=== PATIENT | male | born 1955 | race Caucasian/White ===

== ENCOUNTER 2025-01-16 11:36 | Emergency (ER) | payer BC, MEDICARE ==
[2025-01-16] MEDS: MECLIZINE 12.5 MG TAB PO STA (12:20)
[2025-01-16] MEDS: SODIUM CHLORIDE 0.9% 1,000 ML IV STA (12:22)
[2025-01-16 12:25] LABS: ALT 26 U/L (4-49); African American GFR (CKD) >90 (>60 ml/min/1.73 sqM); Albumin 4.3 g/dL (3.5-5.0); Anion Gap 8 mmol/L; Basophils # (A) 0.04 10*3/uL (0.00-0.10); Basophils % (A) 0.6 %; Blood Urea Nitrogen 23 mg/dL (9-20); Calcium 9.9 mg/dL (8.4-10.2); Carbon Dioxide 26 mmol/L (22-30); Chloride 100 mmol/L (98-107); Eosinophils # (A) 0.11 10*3/uL (0.04-0.35); Eosinophils % (A) 1.6 %; Glucose 105 mg/dL (74-99); HCT 43.5 % (39.6-50.0); HGB 15.5 g/dL (13.0-17.0); Lymphocytes # (A) 1.35 10*3/uL (0.90-5.00); Lymphocytes % (A) 20.1 %; MCHC 35.6 g/dL (32.0-37.0); MCV 95.4 fL (80.0-97.0); Mean Platelet Volume 10.5 fL (9.5-12.2); Monocytes % (A) 7.5 %; Neutrophils # (A) 4.69 10*3/uL (1.80-7.70); Neutrophils % (A) 70.1 %; Non-African American GFR(CKD) 88 (>60 ml/min/1.73 sqM); Platelet Count 223 10*3/uL (140-440); RBC 4.56 10*6/uL (4.40-5.60); RDW 11.8 % (11.5-14.5); Sodium 134 mmol/L (137-145); Total Bilirubin 1.3 mg/dL (0.2-1.3)
[2025-01-16 12:26] LABS: Potassium 4.4 mmol/L (3.5-5.1)
[2025-01-16 12:27] LABS: AST 38 U/L (17-59); Alkaline Phosphatase 57 U/L (38-126)
[2025-01-16 12:36] LABS: INR 0.9 (<1.2); Prothrombin Time 10.3 sec (10.0-12.5)
[2025-01-16 12:41] LABS: Appearance,Urine Clear (Clear); Bilirubin,Urine Negative (Negative); Blood,Urine Negative (Negative); Color,Urine Light Yellow; Glucose,Urine (UA) Negative (Negative); Ketones,Urine 1+ (Negative); Leukocyte Esterase,Urine Negative (Negative); Nitrite,Urine Negative (Negative); Protein,Urine Negative (Negative); Specific Gravity,Urine 1.016 (1.001-1.035); Urobilinogen,Urine <2.0 mg/dL (<2.0)
[2025-01-16 12:56] LABS: Amphetamine Screen,Urine Detected (NotDetected); Barbiturate Screen,Urine Not Detected (NotDetected); Benzodiazepines Screen,Urine Not Detected (NotDetected); Cocaine Screen,Urine Not Detected (NotDetected); Methadone Screen, Urine Not Detected (NotDetected); Opiate Screen,Urine Not Detected (NotDetected); Oxycodone Screen, Urine Not Detected (NotDetected); Phencyclidine Screen,Urine Not Detected (NotDetected); Tricyclic Antidepressant,Urine Not Detected (NotDetected); Urn Cannabinoid Scrn Not Detected (NotDetected)
--- NOTE | 2025-01-16 13:01 | XR ---
EXAMINATION TYPE: XR chest 2V DATE OF EXAM: 01/16/2025 12:42 PM COMPARISON: None CLINICAL INDICATION: Male, 69 years old with history of dizzy, , TECHNIQUE: PA and lateral views FINDINGS: Heart normal size. Aorta and pulmonary vasculature within normal limits. Moderate hyperinflation. Old healed right-sided rib fracture deformities. No consolidation or pleural effusion. IMPRESSION: Mild hyperinflation may relate to depth of inspiration or underlying emphysema. Old healed right-side d rib fracture deformities. No acute process seen. [facility], Workstation: [facility], 01/16/2025 12:58 PM
[2025-01-16 13:13] LABS: Influenza A Not Detected (Not Detectd); Influenza B Not Detected (Not Detectd); RSV Not Detected (Not Detectd)
--- NOTE | 2025-01-16 13:20 | CT ---
EXAMINATION TYPE: CT brain wo con DATE OF EXAM: 01/16/2025 COMPARISON: None CLINICAL INDICATION: Male, 69 years old with history of vertigo; PHH, vertigo CT DLP: 1159 mGycm Automated exposure control for dose reduction was used. Findings: The ventricles, basal cisterns and sulci over the convexities are within normal limits for the patien t's age and there is no mass effect or shift of midline structures. There is a wedge-shaped hypodensity in the left frontal lobe consistent with remote cortical and subc ortical white matter infarct. There is no acute intra or extra-axial hemorrhage. The posterior fossa including the brainstem, fourth ventricle and cerebellar pontine angles appear no rmal. Intraorbital contents appear normal and symmetric. Visualized paranasal sinuses and mastoid air cells are well aerated. The calvarium is intact. IMPRESSION: 1. No acute bleed or mass effect. 2 remote small left frontal lobe infarct.. [facility], Workstation: [email or web address] 01/16/2025 1:18 PM
--- NOTE | 2025-01-16 13:26 | CT ---
EXAMINATION TYPE: CT angio head neck DATE OF EXAM: 01/16/2025 COMPARISON: None CLINICAL INDICATION: Male, 69 years old with history of vertigo; PHH, vertigo TECHNIQUE: CTA scan of the head and neck is performed with IV Contrast, patient injected with 65 mL of Isovue 370, axial images are obtained, coronal and sagittal reformatted images are reviewed. 3D re constructed images are created on an independent workstation and reviewed. CT DLP: 526.[address] CTDI: mGy Automated exposure control for dose reduction was used. NASCET criteria was used in interpretation of this exam? FINDINGS: The brachiocephalic origins are widely patent and no significant stenosis. There is no significant stenosis of the common or internal carotid arteries within the neck. There is no stenosis of the vertebral arteries. Intracranially, there is no stenosis, segmental occlusion, sizable aneurysm sac or vascular malformat ion. Note is made of 1.5 cm nodule in the right lobe of the thyroid gland and thyroid ultrasound is recomm ended for further evaluation and to exclude malignancy. IMPRESSION:. 1. No evidence of occlusive disease involving the common or internal carotid arteries within the neck . 2. No evidence of occlusive disease intracranially. 3. 1.5 cm nodule right lower thyroid gland thyroid ultrasound is recommended for further evaluation. Fine-needle aspiration may be indicated. NASCET criteria was used in interpretation of this exam? [facility], Workstation: [email or web address] 01/16/2025 1:24 PM
--- NOTE | 2025-01-16 13:34 | ED ---
General Adult HPI - General Chief complaint: Dizziness Stated complaint: dizziness Time Seen by Provider: 01/16/25 11:50 Source: patient, RN notes reviewed, old records reviewed Mode of arrival: ambulatory Limitations: no limitations - History of Present Illness Initial comments: Patient is a 69-year-old male who presents emergency department plaint of dizziness. States that he was playing with his grandchildren on Wednesday including putting his head upside down. States that since that time whenever he bends forward he gets a vertiginous sensation of the room spinning with mild nausea. Denies any lightheadedness or head heavy sensation. Denies any weakness. Denies any head injuries. Possible remote history of a subdural hematoma after discussion with patient and however they report stories regarding this. Is not on blood thinners. Denies chest pain or shortness of breath. Denies headache or blurry vision. Has no other acute complaints at this time. Presents for further evaluation at this time.Denies any symptoms at rest. - Related Data Home Medications Medication Instructions Recorded Confirmed Atorvastatin [Lipitor] 20 mg PO DAILY 01/16/25 01/16/25 Finasteride [Proscar] 5 mg PO HS 01/16/25 01/16/25 Multivit-Mins/Iron/Folic/Lycop 1 tab PO DAILY 01/16/25 01/16/25 [Centrum Men's Tablet] Tamsulosin [Flomax] 0.4 mg PO BID 01/16/25 01/16/25 Previous Rx's Medication Instructions Recorded Meclizine [Antivert] 25 mg PO TID PRN 7 Days #21 tab 01/16/25 Allergies Allergy/AdvReac Type Severity Reaction Status Date / Time No Known Allergies Allergy Verified 01/16/25 12:53 Review of Systems ROS Statement: Those systems with pertinent positive or pertinent negative responses have been documented in the HPI. Review of Systems: CONST: Denies fever EYES: Denies blurry vision ENT: Denies nasal congestion C/V: Denies Chest pain RESP: Denies shortness of breath GI: Denies abdominal pain : Denies dysuria SKIN: Denies rash. MSK: Denies joint pain. NEURO: Denies headache ROS Other: All systems not noted in ROS Statement are negative. Past Medical History Past Medical History: Hyperlipidemia Additional Past Medical History / Comment(s): Prostate History of Any Multi-Drug Resistant Organisms: None Reported Past Surgical History: No Surgical Hx Reported Past Psychological History: No Psychological Hx Reported Smoking Status: Never smoker Past Alcohol Use History: Occasional Past Drug Use History: None Reported General Exam - General Exam Comments Initial Comments: General: Appears in no acute distress. HEAD: Normal with no signs of head trauma. EYES: PERRLA, EOMI, conjunctiva normal, no discharge. Pupils are 3 mm and equal bilaterally. ENT: Hearing grossly intact, normal oropharynx. RESPIRATORY: Clear breath sounds bilaterally. No wheezes, rales, or rhonchi. C/V: Regular rate and rhythm. S1 and S2 auscultated, no edema, peripheral pulses 2+ and intact throughout ABD: Abd is soft, nontender, nondistended EXT: no obvious deformity SKIN: No rashes or lesions observed on exposed skin. NEURO: Alert and oriented x 4. GCS of 15. NIH of 0. Limitations: no limitations Course Vital Signs 01/16/25 01/16/25 01/16/25 11:37 12:31 14:20 Temperature 98.5 F 98.3 F Pulse Rate 85 65 58 L Respiratory 20 16 18 Rate Blood Pressure 173/92 146/83 151/86 O2 Sat by Pulse 97 99 99 Oximetry Medical Decision Making - Medical Decision Making Was pt. sent in by a medical professional or institution (, PA, WASHERY BOSS, urgent care, hospital, or [facility]...) When possible be specific @ -No Did you speak to anyone other than the patient for history (EMS, parent, family, police, friend...)? What history was obtained from this source @ -No Did you review nursing and triage notes (agree or disagree)? Why? @ -I reviewed and agree with nursing and triage notes Were old charts reviewed (outside hosp., previous admission, EMS record, old EKG, old radiological studies, urgent care reports/EKG's, [facility] records)? Report findings @ -No old charts were reviewed Differential Diagnosis (chest pain, altered mental status, abdominal pain women, abdominal pain men, vaginal bleeding, weakness, fever, dyspnea, syncope, headache, dizziness, GI bleed, back pain, seizure, CVA, palpatations, mental health, musculoskeletal)? @ -Differential Dizziness: Benign paroxysmal positional Vertigo, Meniere's disease, otitis media, acoustic neuroma, vertebrobasilar insufficiency, cerebellar stroke, encephalitis, hypovolemic, arrhythmia, coronary artery syndrome, anemia, this is not meant to be an all-inclusive list EKG interpreted by me (3pts min.). @ -As above X-rays interpreted by me (1pt min.). @ -Chest x-ray reveals no obvious acute cardiopulmonary process. Old rib fractures present. CT interpreted by me (1pt min.). @ -CT brain reveals no obvious acute intracranial process. Remote left frontal lobe infarct present. CT angiogram of the head and neck shows no obvious acute process. Patient does have a thyroid nodule and outpatient workup is recommended. U/S interpreted by me (1pt. min.). @ -None done What testing was considered but not performed or refused? (CT, X-rays, U/S, labs)? Why? @ -None What meds were considered but not given or refused? Why? @ -None Did you discuss the management of the patient with other professionals (professionals i.e. , PA, WASHERY BOSS, lab, RT, psych nurse, social work lecturer, stroboroma operator, teacher, risk control officer, window caser)? Give summary @ -No Was smoking cessation discussed for >3mins.? @ -No Was critical care preformed (if so, how long)? @ -No Were there social determinants of health that impacted care today? How? (Homelessness, low income, unemployed, alcoholism, drug addiction, transportation, low edu. Level, literacy, decrease access to med. care, fdc, rehab)? @ -No Was there de-escalation of care discussed even if they declined (Discuss DNR or withdrawal of care, Hospice)? DNR status @ -No What co-morbidities impacted this encounter? (DM, HTN, Smoking, COPD, CAD, Cancer, CVA, ARF, Chemo, Hep., AIDS, mental health diagnosis, sleep apnea, morbid obesity)? @ -None Was patient admitted / discharged? Hospital course, mention meds given and route, prescriptions, significant lab abnormalities, going to OR and other pertinent info. @ -Patient presents for what seems to be vertiginous symptoms. We will obtain CT imaging of the brain with CT angiogram head and neck as well as chest x-ray in addition to the labs. Patient was in agreement this plan. Vitals are within acceptable limits. He will be given fluids and IV meclizine. Does seem to be positional. Laboratory studies remarkable for 1+ ketones in the urine, possible mild dehydration but otherwise unremarkable. Imaging shows no obvious acute process. Patient does have a thyroid nodule with outpatient workup recommended, patient has a remote left-sided frontal lobe infarct however no acute findings. Chest x-ray shows old right-sided rib fractures. On reevaluation, patient is asymptomatic. I discussed results with him. He expressed understanding. Will follow-up regarding the remote lacunar infarct as well as the thyroid nodule. Patient will be started on baby aspirin and given prescription for meclizine. Recommended follow-up with his PCP. He was in agreement this plan. I will provide the patient with a prescription for meclizine. I instructed the patient to follow up with their PCP in the next 1-3 days.. I explained that the patient should return to the emergency department if they experience any worsening symptoms. Strict return precautions were discussed with the patient. The patient expressed understanding of these instructions. I answered all questions that the patient had. The patient was discharged home in good condition with their prescriptions and follow up information. Undiagnosed new problem with uncertain prognosis? @ -No Drug Therapy requiring intensive monitoring for toxicity (Heparin, Nitro, Insulin, Cardizem)? @ -No Were any procedures done? @ -No Diagnosis/symptom? @ -Vertigo, thyroid nodule Acute, or Chronic, or Acute on Chronic? @ -Acute Uncomplicated (without systemic symptoms) or Complicated (systemic symptoms)? @ -Uncomplicated Side effects of treatment? @ -None Exacerbation, Progression, or Severe Exacerbation] @ -No Poses a threat to life or bodily function? @ -Unlikely at this time - Lab Data Result diagrams: 01/16/25 11:55 01/16/25 11:55 Lab Results 01/16/25 01/16/25 01/16/25 Range/Units 11:55 11:55 11:55 WBC 6.70 (4.50-10.00) 10*3/uL RBC 4.56 (4.40-5.60) 10*6/uL Hgb 15.5 (13.0-17.0) g/dL Hct 43.5 (39.6-50.0) % MCV 95.4 (80.0-97.0) fL MCH 34.0 H (27.0-32.0) pg MCHC 35.6 (32.0-37.0) g/dL Plt Count 223 (140-440) 10*3/uL MPV 10.5 (9.5-12.2) fL Immature Gran % (Auto) 0.1 % Neutrophils % 70.1 % Lymphocytes % 20.1 % Monocytes % 7.5 % Eosinophils % 1.6 % Basophils % 0.6 % Immature Gran # 0.01 (0.00-0.04) 10*3/uL Neutrophils # 4.69 (1.80-7.70) 10*3/uL Lymphocytes # 1.35 (0.90-5.00) 10*3/uL Monocytes # 0.50 (0.20-1.00) 10*3/uL Eosinophils # 0.11 (0.04-0.35) 10*3/uL Basophils # 0.04 (0.00-0.10) 10*3/uL PT 10.3 (10.0-12.5) sec INR 0.9 (<1.2) Sodium 134 L (137-145) mmol/L Potassium 4.4 (3.5-5.1) mmol/L Chloride 100 (98-107) mmol/L Carbon Dioxide 26 (22-30) mmol/L Anion Gap 8 mmol/L BUN 23 H (9-20) mg/dL Creatinine 0.84 (0.66-1.25) mg/dL Est GFR (CKD-EPI)AfAm >90 (>60 ml/min/1.73 sqM) Est GFR (CKD-EPI)NonAf 88 (>60 ml/min/1.73 sqM) Glucose 105 H (74-99) mg/dL Calcium 9.9 (8.4-10.2) mg/dL Total Bilirubin 1.3 (0.2-1.3) mg/dL AST 38 (17-59) U/L ALT 26 (4-49) U/L Alkaline Phosphatase 57 (38-126) U/L Total Protein 7.0 (6.3-8.2) g/dL Albumin 4.3 (3.5-5.0) g/dL Urine Color Urine Appearance (Clear) Urine pH (5.0-8.0) Ur Specific [place] (1.001-1.035) Urine Protein (Negative) Urine Glucose (UA) (Negative) Urine Ketones (Negative) Urine Blood (Negative) Urine Nitrite (Negative) Urine Bilirubin (Negative) Urine Urobilinogen (<2.0) mg/dL Ur Leukocyte Esterase (Negative) Urine Opiates Screen (NotDetected) Ur Oxycodone Screen (NotDetected) Urine Methadone Screen (NotDetected) Ur Barbiturates Screen (NotDetected) U Tricyclic Antidepress (NotDetected) Ur Phencyclidine Scrn (NotDetected) Ur Amphetamines Screen (NotDetected) U Methamphetamines Scrn (NotDetected) U Benzodiazepines Scrn (NotDetected) Urine Cocaine Screen (NotDetected) U Marijuana (THC) Screen (NotDetected) Influenza Type A (PCR) (Not Detectd) Influenza Type B (PCR) (Not Detectd) RSV (PCR) (Not Detectd) SARS-CoV-2 (PCR) (Not Detectd) 01/16/25 01/16/25 01/16/25 Range/Units 12:29 12:29 12:29 WBC (4.50-10.00) 10*3/uL RBC (4.40-5.60) 10*6/uL Hgb (13.0-17.0) g/dL Hct (39.6-50.0) % MCV (80.0-97.0) fL MCH (27.0-32.0) pg MCHC (32.0-37.0) g/dL Plt Count (140-440) 10*3/uL MPV (9.5-12.2) fL Immature Gran % (Auto) % Neutrophils % % Lymphocytes % % Monocytes % % Eosinophils % % Basophils % % Immature Gran # (0.00-0.04) 10*3/uL Neutrophils # (1.80-7.70) 10*3/uL Lymphocytes # (0.90-5.00) 10*3/uL Monocytes # (0.20-1.00) 10*3/uL Eosinophils # (0.04-0.35) 10*3/uL Basophils # (0.00-0.10) 10*3/uL PT (10.0-12.5) sec INR (<1.2) Sodium (137-145) mmol/L Potassium (3.5-5.1) mmol/L Chloride (98-107) mmol/L Carbon Dioxide (22-30) mmol/L Anion Gap mmol/L BUN (9-20) mg/dL Creatinine (0.66-1.25) mg/dL Est GFR (CKD-EPI)AfAm (>60 ml/min/1.73 sqM) Est GFR (CKD-EPI)NonAf (>60 ml/min/1.73 sqM) Glucose (74-99) mg/dL Calcium (8.4-10.2) mg/dL Total Bilirubin (0.2-1.3) mg/dL AST (17-59) U/L ALT (4-49) U/L Alkaline Phosphatase (38-126) U/L Total Protein (6.3-8.2) g/dL Albumin (3.5-5.0) g/dL Urine Color Light Yellow Urine Appearance Clear (Clear) Urine pH 6.0 (5.0-8.0) Ur Specific [place] 1.016 (1.001-1.035) Urine Protein Negative (Negative) Urine Glucose (UA) Negative (Negative) Urine Ketones 1+ H (Negative) Urine Blood Negative (Negative) Urine Nitrite Negative (Negative) Urine Bilirubin Negative (Negative) Urine Urobilinogen <2.0 (<2.0) mg/dL Ur Leukocyte Esterase Negative (Negative) Urine Opiates Screen Not Detected (NotDetected) Ur Oxycodone Screen Not Detected (NotDetected) Urine Methadone Screen Not Detected (NotDetected) Ur Barbiturates Screen Not Detected (NotDetected) U Tricyclic Antidepress Not Detected (NotDetected) Ur Phencyclidine Scrn Not Detected (NotDetected) Ur Amphetamines Screen Detected H (NotDetected) U Methamphetamines Scrn Not Detected (NotDetected) U Benzodiazepines Scrn Not Detected (NotDetected) Urine Cocaine Screen Not Detected (NotDetected) U Marijuana (THC) Screen Not Detected (NotDetected) Influenza Type A (PCR) Not Detected (Not Detectd) Influenza Type B (PCR) Not Detected (Not Detectd) RSV (PCR) Not Detected (Not Detectd) SARS-CoV-2 (PCR) Not Detected (Not Detectd) - EKG Data -: EKG Interpreted by Me EKG Comments: 12-lead Electrocardiogram Interpretation Note EKG was reviewed and interpreted by myself. 12-lead ECG performed at 1148 is interpreted by me as revealing normal sinus rhythm with incomplete right bundle branch block at a rate of 70 beats per minute. [place] is normal. IN interval is 177 ms, QRS duration is 118 ms, QTc is 392 ms.. There were no ST or T wave abnormalities to suggest myocardial ischemia or injury. R wave progression across the precordium was satisfactory. By my interpretation this EKG is non- diagnostic for acute ischemia. Disposition Clinical Impression: Vertigo, Thyroid nodule Disposition: HOME SELF-CARE Condition: Good Additional Instructions: Your diagnosis today is vertigo. Take the meclizine as needed for your vertigo symptoms. Your imaging did not find any obvious findings of cause of vertigo. CT imaging did show that you have an old left-sided frontal lobe infarct (stroke). It also showed that you have an old right sided rib fracture. It also showed that you have a thyroid nodule that requires more of a outpatient workup. Please start daily 81 mg aspirin. Return to the ER for any worsening symptoms. Follow-up with your PCP in the next 1 to 3 days. Prescriptions: Meclizine [Antivert] 25 mg PO TID PRN 7 Days #21 tab PRN Reason: Vertigo Is patient prescribed a controlled substance at d/c from ED?: No Referrals: Ismael Myers MD [Primary Care Provider] - 1-2 days Time of Disposition: 13:53
[2025-01-16] MEDS: ASPIRIN 81 MG PO STA (14:13)
[2025-01-16 14:47] VITALS: BP 151/86; PULSE 58; RESP 18; TEMP 98.3
== END 2025-01-16 14:25 | disposition home or self-care (01) ==
LOC: EC 11:36
DX: E04.1 Nontoxic single thyroid nodule (principal); R42 Dizziness and giddiness; Z11.52 Encounter for screening for COVID-19
CPT/HCPCS: 36415; 93005; 80053; 85025; 85610; 81003; 80306; 87636; 71046; 70496; 70450; 70498; 99285; 96360; Q9967

== ENCOUNTER → 2025-02-20 | Outpatient (CLI) | payer BC ==
--- NOTE | 2025-02-20 15:08 | US ---
EXAMINATION TYPE: US thyroid st tissue head/neck DATE OF EXAM: 02/20/2025 COMPARISON: NONE CLINICAL INDICATION: Male, 69 years old with history of Z86.73 PERSONAL HX TIA E04.1 THY NODULE; Thy roid nodule TECHNIQUE: Grayscale and color Doppler imaging of the thyroid gland. FINDINGS: GLAND SIZE: Right Lobe: 4.7 x 2.0 x 2.6 cm Overall Parenchyma: homogeneous Left Lobe: 5.3 x 1.6 x 2.1 cm Overall Parenchyma: homogeneous Isthmus Thickness: .3 cm NODULES RIGHT: # of nodules measured on right: 1 1. 2.0 X 1.4 x 1.9 cm, mid , solid or almost completely solid, isoechoic TR 3 nodule, which is wide r than tall, with smooth margins, without echogenic foci. Prior size: no previous LEFT: # of nodules measured on left: 1 1. 1.7 X .9 x 1.8 cm, lower lateral, mixed cystic and solid, mostly anechoic lesion that shows a 5 mm mural nodule. This is a TR 3, which is wider than tall, with smooth margins, with echogenic foci. Prior size: No previous ISTHMUS: # of nodules measured in the isthmus: 0 Bilateral neck scanned, no evidence of lymphadenopathy. IMPRESSION: A single TR3 nodule on either side measuring 2.0 cm on the right and 1.7 cm on the left. TR3: If nodule size is ? 2.5 cm, FNA is recommended. If nodule size is ? 1.5 cm, follow-up imaging at 1, 3, and 5 years is recommended. TR 1 thyroid nodules have a 0.3 % risk of malignancy. TR 2 thyroid nodules have a 1.5 % risk of malignancy. TR 3 thyroid nodules have a 4.8 % risk of malignancy. TR 4 thyroid nodules have a 9.1 % risk of malignancy. TR 5 thyroid nodules have a 35 % risk of malignancy. [facility], Workstation: [email or web address], 02/20/2025 3:06 PM
--- NOTE | 2025-02-20 16:38 | MR ---
INDICATION: Patient age:Male; 69 years old; Reason for study: Z86.73; [facility]. COMPARISON: CT brain 01/16/2025, CTA head and neck 01/16/2025. TECHNIQUE: Multi planar, multi sequence imaging was performed through the brain. The patient was then given 25 cc of Gadobutrol intravenously and multi planar, T1 fat-saturation images were obtained. FINDINGS: The jaeger-white junctions, ventricular system, basal cisterns appear unremarkable. Age-appropriate cer ebral volume loss. Diffusion-weighted imaging shows no evidence of restricted diffusion to suggest ac [place]/subacute infarct. Small left frontal lobe prior infarct with encephalomalacia and gliosis. Intrac ranial arterial flow voids are maintained. Midline structures show no abnormality. Patchy foci of hig h T2/FLAIR signal intensity are seen within the periventricular and subcortical white matter. The kirill ceptibility weighted images demonstrate scattered foci of blooming artifact within the bilateral temp oral lobes and larger region within the left frontal lobe infarct consistent with prior hemosiderin d eposition. After administration of gadolinium, no abnormal enhancement is seen. The bone marrow signal is within normal limits. The globes are unremarkable. Mild mucosal thickening of the ethmoid sinuses. IMPRESSION: 1. No evidence of intracranial mass, acute/subacute infarct, or abnormal enhancement. 2. Remote small left frontal lobe infarct with encephalomalacia. 3. Nonspecific mild white matter changes, likely related to small vessel ischemic disease. [facility], , 02/20/2025 4:36 PM
== END | disposition home or self-care (01) ==
LOC: RADUSWWP 13:59
PROVIDERS: ATTEND Internal Medicine Geriatric Medicine
DX: E04.1 Nontoxic single thyroid nodule (principal); G93.89 Other specified disorders of brain; Z86.73 Personal history of transient ischemic attack (TIA), and cerebral infarction without residual deficits
CPT/HCPCS: 76536; 70553; A9585